=== PATIENT | female | born 1950 | race Caucasian/White ===

== ENCOUNTER → 2018-01-08 | Outpatient (CLI) | payer OTHER ==
[~2018-01-08] MED LIST: HYDR12.558 PO; LOR7.5/325 PO
--- NOTE | 2018-01-08 13:52 | RADIOLOGY IMAGING REPORT ---
FACILITY: [facility] [place] PATIENT NAME: Emma Alexis : 1950 MR: [id number] V: [id number] EXAM DATE: ORDERING PHYSICIAN: JOSE BENTON TECHNOLOGIST: Location: [facility] Patient: Emma Alexis : 1950 Visit/Account:[id number] Date of Sevice: 01/08/2018 Exam type: CHEST PA AND LAT History: Cough, shortness of breath x2 months Comparison: December 17, 2014. Findings: The lungs are free of acute effusions of the tracer edema. Hyperinflation lung basilio again noted. There is linear scarring in the upper lobes. No evidence of a pneumothorax or pneumomediastinum. Th e cardiac silhouette is normal in size. IMPRESSION: 1. Hyperinflation lung basilio and upper lobe scarring although no acute heart pulmonary process is s een Report Dictated By: Sonia Hill MD at 01/08/2018 1:47 PM Report E-Signed By: Sonia Hill MD at 01/08/2018 1:49 PM WSN:[email or web address]
== END ==
LOC: RAD 11:40
PROVIDERS: ATTEND Nurse Practitioner Family
DX: R91.8 Other nonspecific abnormal finding of lung field (principal)
CPT/HCPCS: 71046

== ENCOUNTER → 2018-09-27 | Outpatient (CLI) | payer OTHER ==
--- NOTE | 2018-09-28 11:26 | RADIOLOGY IMAGING REPORT ---
[place] [facility] [place] NAME: DANA PIERCE : [id number] MR: [id number] V: [id number] EXAM DATE: ORDERING PHYSICIAN: JOSE BENTON TECHNOLOGIST: Edilia Galeano PROCEDURE:BILATERAL DIAGNOSTIC DIGITAL MAMMOGRAM WITH CAD ASSISTED INTERPRETATION & 3D TOMOSYNTHESIS COMPARISON:None. Baseline mammogram INDICATIONS:PALPABLE RIGHT BREAST LUMP FINDINGS: The breasts are heterogeneously dense which can obscure small masses. In the retroareolar Right breast there is a large irregular spiculated mass with pleomorphic calcifications extremely concerning for malignancy. It corresponds to the irregular hypoechoic shadowing mass seen on today's Right breast Ultrasound. In the inferior medial portion of the Left breast there are 2 irregular spiculated nodules which correspond to the 2 spiculated masses seen on today's Left breast Ultrasound. These are also concerning for malignancy. DIAGNOSTIC CATEGORY 5--HIGHLY SUGGESTIVE OF MALIGNANCY. RECOMMENDATIONS: ULTRASOUND-GUIDED CORE BIOPSY: BILATERAL BREASTS. IMPRESSION: BIRADS 5: Highly suggestive of malignancy. Ultrasound guided core biopsy of the large Right retroareolar mass & the abnormal appearing Right axillary lymph node as seen on today's Right breast Ultrasound. Ultrasound guided core biopsy of the 2 spiculated masses in the 7 o'clock position of the Left breast also recommended. Dictated by: Sonia Hill M.D. on 09/27/2018 at 16:05 Transcribed by: CHRISSIE on 09/28/2018 at 10:25 Approved by: Sonia Hill M.D. on 09/28/2018 at 11:24 [facility]
--- NOTE | 2018-09-28 11:26 | RADIOLOGY IMAGING REPORT ---
FACILITY: PATIENT NAME: DANA PIERCE : [id number] MR: [id number] V: [id number] EXAM DATE: ORDERING PHYSICIAN: JOSE BENTON TECHNOLOGIST: Sia Kirby RDMS(ABD,OBGYN,BR),RVT PROCEDURE:US BILATERAL BREAST COMPARISON:Today's diagnostic mammogram INDICATIONS:BREAST LUMP/ABNORMAL MAMMOGRAM FINDINGS: In the 9 o'clock position of the Right breast adjacent to the nipple there is a large noncircumscribed spiculated heterogeneous mass measuring 4.2 x 3.9 x 2.8cm with intense acoustic shadowing. This mass is extremely concerning for malignancy. In the Right axilla there is an abnormal appearing lymph node with a heterogeneous hilum & abnormal round morphology. This lymph node measures 1.2 x 1 x 1cm & is concerning for a malignant lymph node. There is an additional fatty replaced lymph node in the Right axilla measuring 1.4 x 1.2 x 0.8cm. In the Left breast in the 7 o'clock position 4cm from the nipple there is a noncircumscribed irregular microlobular shadowing hypoechoic mass measuring 1 x 0.7 x 0.7cm in the posterior third. This is concerning for malignancy. Also in the 7 o'clock position Left breast 3cm from the nipple there is a noncircumscribed irregular slightly spiculated hypoechoic mass measuring 8 x 10 x 7mm concerning for malignancy. There are several fatty replaced lymph nodes seen in the Left axilla. DIAGNOSTIC CATEGORY 5--HIGHLY SUGGESTIVE OF MALIGNANCY. RECOMMENDATIONS: ULTRASOUND-GUIDED CORE BIOPSY: BILATERAL BREASTS. IMPRESSION: BIRADS 5: Highly suggestive of malignancy. Ultrasound guided core biopsy recommended of the large heterogeneous shadowing mass in the 9 o'clock position of the Right breast adjacent to the nipple in addition to the abnormal appearing Right axillary lymph node. Ultrasound guided core biopsy also recommended of the 2 masses in the 7 o'clock position of the Left breast. Dictated by: Sonia Hill M.D. on 09/27/2018 at 16:02 Transcribed by: CHRISSIE on 09/28/2018 at 11:10 Approved by: Sonia Hill M.D. on 09/28/2018 at 11:25 [facility]
== END ==
LOC: MAMO 00:42
PROVIDERS: ATTEND Nurse Practitioner Family
DX: N63.11 Unspecified lump in the right breast, upper outer quadrant (principal); N63.22 Unspecified lump in the left breast, upper inner quadrant
CPT/HCPCS: 77062; 77066

== ENCOUNTER → 2018-10-10 | Outpatient (CLI) | payer OTHER ==
[~2018-10-10] MED LIST changes: +LIDOCAINE MPF 1% 5 ML VIAL ONE
[2018-10-10 09:14] LABS: INR 0.9
--- NOTE | 2018-10-10 16:00 | RADIOLOGY IMAGING REPORT ---
FACILITY: [facility] - [place] PATIENT NAME: DANA PIERCE : [id number] MR: [id number] V: [id number] EXAM DATE: ORDERING PHYSICIAN: JOSE BENTON TECHNOLOGIST: Skye Palma RT(R)(CT) PROCEDURE: BIOPSY LEFT BREAST/2 MASSES IN THE 7 O'CLOCK POSITION/POST BIOPSY RIGHT & LEFT MLO & CC VIEWS. COMPARISON: None. INDICATIONS: Indeterminate mass of the Left breast 7 o'clock position, 2 masses. FINDINGS: Prior to the exam risks & benefits of a Left breast biopsy x 2 were discussed with the patient & an informed consent was obtained. The patient was placed supine on the gurney & the Left breast was prepped & draped in normal sterile fashion. The 7 o'clock lesion that is closest to the nipple was evaluated first. 1% Lidocaine was locally injected for analgesia. After a small skin anusha, a 12 Gauge spring loaded biopsy needle was used to obtain 2 samples of the mass. A biopsy clip was then placed. Next, 1% Lidocaine was locally injected for analgesia for the 7 o'clock position mass that is further from the nipple. After a small skin anusha, a 12 Gauge spring loaded biopsy needle was used to obtain 1 sample. A clip was then placed under Ultrasound guidance at the 2nd mass. Right & Left CC & MLO mammograms were then obtained which demonstrate the clips are in good position. IMPRESSION: 1. Ultrasound guided biopsy of 2 masses in Left breast, a mass labeled as 7 o'clock closer to the nipple & a mass labeled as 7 o'clock further from the nipple. Both masses had clips placed. Dictated by: Kamar Reyna M.D. on 10/10/2018 at 14:02 Transcribed by: CHRISSIE on 10/10/2018 at 15:42 Approved by: Kamar Reyna M.D. on 10/10/2018 at 15:59 [facility]
--- NOTE | 2018-10-10 16:00 | RADIOLOGY IMAGING REPORT ---
[place] [facility] [place] DANA PIERCE : [id number] MR: [id number] V: [id number] EXAM DATE: ORDERING PHYSICIAN: JOSE BENTON TECHNOLOGIST: Skye Palma RT(R)(CT) PROCEDURE: BIOPSY LEFT BREAST/2 MASSES IN THE 7 O'CLOCK POSITION/POST BIOPSY RIGHT & LEFT MLO & CC VIEWS. COMPARISON: None. INDICATIONS: Indeterminate mass of the Left breast 7 o'clock position, 2 masses. FINDINGS: Prior to the exam risks & benefits of a Left breast biopsy x 2 were discussed with the patient & an informed consent was obtained. The patient was placed supine on the gurney & the Left breast was prepped & draped in normal sterile fashion. The 7 o'clock lesion that is closest to the nipple was evaluated first. 1% Lidocaine was locally injected for analgesia. After a small skin anusha, a 12 Gauge spring loaded biopsy needle was used to obtain 2 samples of the mass. A biopsy clip was then placed. Next, 1% Lidocaine was locally injected for analgesia for the 7 o'clock position mass that is further from the nipple. After a small skin anusha, a 12 Gauge spring loaded biopsy needle was used to obtain 1 sample. A clip was then placed under Ultrasound guidance at the 2nd mass. Right & Left CC & MLO mammograms were then obtained which demonstrate the clips are in good position. IMPRESSION: 1. Ultrasound guided biopsy of 2 masses in Left breast, a mass labeled as 7 o'clock closer to the nipple & a mass labeled as 7 o'clock further from the nipple. Both masses had clips placed. Dictated by: Kamar Reyna M.D. on 10/10/2018 at 14:02 Transcribed by: CHRISSIE on 10/10/2018 at 15:42 Approved by: Kamar Reyna M.D. on 10/10/2018 at 15:59 [facility]
--- NOTE | 2018-10-10 16:00 | RADIOLOGY IMAGING REPORT ---
FACILITY: [facility] PATIENT NAME: DANA PIERCE : [id number] MR: [id number] V: [id number] EXAM DATE: [id number] ORDERING PHYSICIAN: JOSE BENTON TECHNOLOGIST: Skye Palma RT(R)(CT) PROCEDURE: BIOPSY RIGHT BREAST/9 o'clock position/axillary lymph node COMPARISON: Prior mammogram & prior Ultrasound 09/27/2018 INDICATIONS: Indeterminate mass & indeterminate lymph node Right breast FINDINGS: Prior to the exam risks & benefits of 2 biopsies of the Right breast were discussed with the patient & informed consent was obtained. The patient was placed supine on the gurney & the Right breast was prepped & draped in normal sterile fashion. 1% Lidocaine was locally injected. After a small skin anusha, a 12 Gauge spring loaded biopsy needle was used to obtain 3 samples of the large mass at the 9 o'clock position of the Right breast. A biopsy clip was then placed. Next 1% Lidocaine was locally injected at the Right axilla & using Ultrasound guidance a 17 Gauge spring loaded needle was used to obtain 3 samples of the Right lymph node. A clip was then placed at the biopsy site of the lymph node. IMPRESSION: Ultrasound guided biopsy of a large mass 9 o'clock position Right breast & Ultrasound guided biopsy of an abnormal Right axillary lymph node. At both biopsy sites, breast clips were placed. There were no immediate post procedure complications. Dictated by: Kamar Reyna M.D. on 10/10/2018 at 13:57 Transcribed by: CHRISSIE on 10/10/2018 at 15:21 Approved by: Kamar Reyna M.D. on 10/10/2018 at 15:59 [facility]
== END ==
LOC: US 00:59
PROVIDERS: ATTEND Nurse Practitioner Family
DX: C50.911 Malignant neoplasm of unspecified site of right female breast (principal); C50.912 Malignant neoplasm of unspecified site of left female breast; C77.3 Secondary and unspecified malignant neoplasm of axilla and upper limb lymph nodes
CPT/HCPCS: 19083; 36415; 77062; 77066; 85610; 88305; 88344; J2001

== ENCOUNTER 2018-10-18 12:33 | Outpatient (RCR) | payer OTHER ==
[~2018-10-18 12:33] MED LIST changes: -LIDOCAINE MPF 1% 5 ML VIAL ONE
== END 2018-11-05 14:43 | disposition home or self-care (01) ==
LOC: ONC 12:33
PROVIDERS: ATTEND Internal Medicine Hematology
DX: Z02.9 Encounter for administrative examinations, unspecified (principal)

== ENCOUNTER → 2018-10-30 | Outpatient (CLI) | payer OTHER | LOC: US 00:15 | PROVIDERS: ATTEND Internal Medicine Hematology & Oncology | DX: Z51.81 Encounter for therapeutic drug level monitoring (principal); C50.312 Malignant neoplasm of lower-inner quadrant of left female breast; C50.411 Malignant neoplasm of upper-outer quadrant of right female breast; Z17.0 Estrogen receptor positive status [ER+]; I42.7 Cardiomyopathy due to drug and external agent; Z79.899 Other long term (current) drug therapy | CPT/HCPCS: 93306 ==

== ENCOUNTER 2018-11-24 16:03 | Emergency (ER) | payer OTHER ==
[2018-11-24 16:06] VITALS: BP 136/88
[2018-11-24] MEDS ORDERED: MAGIC MOUTHWASH (16:10)
[2018-11-24] MEDS ORDERED: POTA-28 PO (16:10)
[2018-11-24] MEDS ORDERED: ROSU5TAB8 PO (16:10)
--- NOTE | 2018-11-24 16:16 | ER Report ---
History and Physical Time Seen By MD: 16:14 Hx. of Stated Complaint: BEING TREATED FOR BREAST CANCER IN [place]. SORE THROAT SINCE MONDAY. HPI/ROS Has been receiving chemotherapy for the past 4 weeks. Has had problems with mucosal irritation in mouth/lips. Now with sore throat. No fever/chills. Able to take PO, but less due to pain. Has been using magic mouthwash for pain. Last chemo 10 days ago. Remainder of the 14 system rev: Yes Allergies: Coded Allergies: No Known Drug Allergies (Unverified , 11/24/18) Home Meds Active Scripts Fluconazole (FLUCONAZOLE) 200 Mg Tablet, 200 MG PO QDAY for 3 Days, #3 Prov:TEJINDER GARCIA MD 11/24/18 Reported Medications Potassium Chloride (POTASSIUM CHLORIDE) 10 Meq Tablet.er, 10 MEQ PO QODAY 11/24/18 Rosuvastatin Calcium (CRESTOR) 5 Mg Tablet, 5 MG PO QDAY 11/24/18 [Magic Mouthwash] No Conflict Check 11/24/18 Hydrochlorothiazide (Hydrochlorothiazide) 12.5 Mg Capsule, 12.5 MG PO QDAY 12/23/11 Discontinued Reported Medications Acetaminophen/Hydrocodone (Lortab 7.5/325 Mg) 7.5 Mg/325 Mg Tab, 1 TAB PO Q6H, #20 12/23/11 Reviewed Nurses Notes: Yes Old Medical Records Reviewed: Yes Hx Smoking: Yes Hx Substance Use Disorder: No Hx Alcohol Use: No Constitutional Vital Sign - Last 24 Hours 11/24/18 16:06 Temp 98.3 Pulse 100 Resp 20 B/P (MAP) 136/88 Pulse Ox 91 O2 Delivery Room Air Physical Exam General Appearance: The patient is alert, has no immediate need for airway protection and no current signs of toxicity. Eyes: Pupils equal and round no injection. Mouth: ulceration of bottom lip, o/p erythematous without exudate. Respiratory: Chest is non tender, lungs are clear to auscultation. Cardiac: regular rate and rhythm Skin: No rashes or lesions. DIFFERENTIAL DIAGNOSIS: After history and physical exam differential diagnosis was considered for esophagitis, strep pharyngitis, SJS, herpangina, thrush Medical Decision Making Data Points Result Diagram: 11/24/18 1622 11/24/18 1622 Laboratory Hematology Test 11/24/18 16:20 11/24/18 16:22 Group A Streptococcus (PCR) Negative (NEGATIVE) Red Blood Count 3.92 M/uL (4.17-5.56) Mean Corpuscular Volume 92.1 fL (80.0-96.0) Mean Corpuscular Hemoglobin 31.9 pg (26.0-33.0) Mean Corpuscular Hemoglobin Concent 34.6 g/dL (32.0-36.0) Red Cell Distribution Width 11.9 % (11.5-14.5) Mean Platelet Volume 8.1 fL (7.2-11.1) Neutrophils (%) (Auto) 79.8 % (39.4-72.5) Lymphocytes (%) (Auto) 12.9 % (17.6-49.6) Monocytes (%) (Auto) 6.6 % (4.1-12.4) Eosinophils (%) (Auto) 0.2 % (0.4-6.7) Basophils (%) (Auto) 0.5 % (0.3-1.4) Nucleated RBC Relative Count (auto) 0.1 /100WBC Neutrophils # (Auto) 1.9 K/uL (2.0-7.4) Lymphocytes # (Auto) 0.3 K/uL (1.3-3.6) Monocytes # (Auto) 0.2 K/uL (0.3-1.0) Eosinophils # (Auto) 0.0 K/uL (0.0-0.5) Basophils # (Auto) 0.0 K/uL (0.0-0.1) Nucleated RBC Absolute Count (auto) 0.00 K/uL Peripheral Blood Smear Yes Y/N Sodium Level 130 mmol/L (137-145) Potassium Level 3.0 mmol/L (3.5-5.0) Chloride Level 92 mmol/L (98-107) Carbon Dioxide Level 24 mmol/L (22-31) Blood Urea Nitrogen 20 mg/dl (7-18) Creatinine 1.10 mg/dl (0.52-1.04) Glomerular Filtration Rate Calc 49.4 Random Glucose 126 mg/dl (75-110) Calcium Level 9.6 mg/dl (8.4-10.2) Total Bilirubin 0.4 mg/dl (0.2-1.3) Aspartate Amino Transf (AST/SGOT) 17 U/L (0-35) Alanine Aminotransferase (ALT/SGPT) 37 U/L (0-56) Alkaline Phosphatase 105 U/L (0-126) Total Protein 7.0 g/dl (6.3-8.2) Albumin 4.1 g/dl (3.5-5.0) Chemistry Test 11/24/18 16:20 11/24/18 16:22 Group A Streptococcus (PCR) Negative (NEGATIVE) White Blood Count 2.3 k/uL (4.5-11.0) Red Blood Count 3.92 M/uL (4.17-5.56) Hemoglobin 12.5 g/dL (12.0-16.0) Hematocrit 36.1 % (34.0-47.0) Mean Corpuscular Volume 92.1 fL (80.0-96.0) Mean Corpuscular Hemoglobin 31.9 pg (26.0-33.0) Mean Corpuscular Hemoglobin Concent 34.6 g/dL (32.0-36.0) Red Cell Distribution Width 11.9 % (11.5-14.5) Platelet Count 91 K/uL (150-450) Mean Platelet Volume 8.1 fL (7.2-11.1) Neutrophils (%) (Auto) 79.8 % (39.4-72.5) Lymphocytes (%) (Auto) 12.9 % (17.6-49.6) Monocytes (%) (Auto) 6.6 % (4.1-12.4) Eosinophils (%) (Auto) 0.2 % (0.4-6.7) Basophils (%) (Auto) 0.5 % (0.3-1.4) Nucleated RBC Relative Count (auto) 0.1 /100WBC Neutrophils # (Auto) 1.9 K/uL (2.0-7.4) Lymphocytes # (Auto) 0.3 K/uL (1.3-3.6) Monocytes # (Auto) 0.2 K/uL (0.3-1.0) Eosinophils # (Auto) 0.0 K/uL (0.0-0.5) Basophils # (Auto) 0.0 K/uL (0.0-0.1) Nucleated RBC Absolute Count (auto) 0.00 K/uL Peripheral Blood Smear Yes Y/N Glomerular Filtration Rate Calc 49.4 Calcium Level 9.6 mg/dl (8.4-10.2) Total Bilirubin 0.4 mg/dl (0.2-1.3) Aspartate Amino Transf (AST/SGOT) 17 U/L (0-35) Alanine Aminotransferase (ALT/SGPT) 37 U/L (0-56) Alkaline Phosphatase 105 U/L (0-126) Total Protein 7.0 g/dl (6.3-8.2) Albumin 4.1 g/dl (3.5-5.0) ED Course/Re-evaluation ED Course No fever, not neutropenic. No evidence of SJS. STrep negative. Possible esophagitis secondary to chemo. Able to take PO. Hypokalemic, but already on potassium Given diflucan in the ED and an additional 3 days. Will follow up with oncologist. Decision to Disposition Date: Nov 24, 2018 Decision to Disposition Time: 17:04 Depart Departure Latest Vital Signs Vital Signs Date Time Temp Pulse Resp B/P (MAP) Pulse Ox O2 Delivery O2 Flow Rate FiO2 11/24/18 16:06 98.3 100 20 136/88 91 Room Air Impression: Primary Impression: Esophagitis Condition: Improved Disposition: HOME OR SELF-CARE Referrals: JOSE BENTON RESEARCH PROFESSOR (PCP) New Scripts Fluconazole (FLUCONAZOLE) 200 Mg Tablet 200 MG PO QDAY for 3 Days, #3 Prov: TEJINDER GARCIA MD 11/24/18 Patient Instructions: Esophagitis (ED) TEJINDER GARCIA MD Nov 24, 2018 16:16
[2018-11-24] MEDS ORDERED: FLUCONAZOLE 100 MG TAB PO ONE (16:30)
[2018-11-24 16:32] LABS: PLATELET COUNT, AUTOMATED 91 K/uL (150-450)
[2018-11-24] MEDS ORDERED: FLUC200T56 PO (17:11)
== END 2018-11-24 17:31 | disposition home or self-care (01) ==
LOC: ER 16:30
DX: K20.9 Esophagitis, unspecified (principal)
CPT/HCPCS: 36415; 82040; 82247; 82310; 82374; 82435; 82565; 82947; 84075; 84132; 84155; 84295; 84450; 84460; 84520; 85025; 87653

== ENCOUNTER → 2018-12-03 | Outpatient (CLI) | payer OTHER ==
[~2018-12-03] MED LIST changes: +FLUC200T56 PO; +MAGIC MOUTHWASH; +POTA-28 PO; +ROSU5TAB8 PO
== END ==
LOC: LAB 06:56
PROVIDERS: ATTEND Nurse Practitioner Family
DX: E87.6 Hypokalemia (principal); E87.1 Hypo-osmolality and hyponatremia
CPT/HCPCS: 36415; 82310; 82374; 82435; 82565; 82947; 84132; 84295; 84520

== ENCOUNTER → 2019-01-10 | Emergency (ER) | payer OTHER ==
[~2019-01-10] MED LIST changes: +HEPARIN FLSH (PORT) 500 UN/5ML IVP ONE; +NS(*) 0.9% 1000 ML BAG 1,000 ML IV ONE
--- NOTE | 2019-01-10 10:56 | ER Report ---
History and Physical Time Seen By MD: 10:52 Hx. of Stated Complaint: double dose of chemo monday. c/o nausea, dizziness. states "my blood was borderline monday." HPI/ROS CHIEF COMPLAINT: Fatigue, chemotherapy, breast cancer HISTORY OF PRESENT ILLNESS: This is a 68-year-old female who presents to emergency department for fatigue. 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 She has had increased fatigue this week, she spoke to the [facility], they did tell her that her "blood count was really low", a solution as a follow-up appointment this coming Monday and decided she was unable to wait to Monday she is so fatigued, and then today began to have some exertional dyspnea when she was up walking around trying to m radha tea. She denies fevers or chills. No nausea or vomiting at this time no blood in the stool or urine that she's noted. REVIEW OF SYSTEMS: Constitutional: No fever, no chills. Eyes: No discharge. ENT: No sore throat. Cardiovascular: As above. Respiratory: As above. Gastrointestinal: No abdominal pain, no vomiting. Genitourinary: No hematuria. Musculoskeletal: No back pain. Skin: No rashes. Neurological: No headache. Allergies: Coded Allergies: No Known Drug Allergies (Unverified , 11/24/18) Home Meds Active Scripts Fluconazole (FLUCONAZOLE) 200 Mg Tablet, 200 MG PO QDAY for 3 Days, #3 Prov:TEJINDER GARCIA MD 11/24/18 Reported Medications Potassium Chloride (POTASSIUM CHLORIDE) 10 Meq Tablet.er, 10 MEQ PO QODAY 11/24/18 Rosuvastatin Calcium (CRESTOR) 5 Mg Tablet, 5 MG PO QDAY 11/24/18 [Magic Mouthwash] No Conflict Check 11/24/18 Hydrochlorothiazide (Hydrochlorothiazide) 12.5 Mg Capsule, 12.5 MG PO QDAY 12/23/11 Past Medical/Surgical History The patient has a past medical surgical history of hypertension, hypercholesterolemia, bilateral breast cancer, chemotherapy. Reviewed Nurses Notes: Yes Hx Smoking: Yes Hx Substance Use Disorder: No Hx Alcohol Use: No Constitutional Vital Sign - Last 24 Hours 01/10/19 01/10/19 01/10/19 01/10/19 10:40 10:45 10:45 10:51 Temp 98.5 Pulse 94 85 Resp 22 B/P (MAP) 114/58 (76) 114/83 114/60 (78) Pulse Ox 97 91 O2 Delivery Room Air 01/10/19 01/10/19 01/10/19 01/10/19 11:00 11:15 11:21 11:30 Pulse 97 B/P (MAP) 99/50 (66) 108/55 (72) 107/52 (70) Pulse Ox 93 01/10/19 01/10/19 01/10/19 01/10/19 11:45 11:51 11:56 12:00 Pulse 93 ??? B/P (MAP) 110/54 (72) 106/39 (61) Pulse Ox 92 01/10/19 01/10/19 01/10/19 01/10/19 12:15 12:26 12:30 12:45 Pulse 102 B/P (MAP) 126/62 (83) 103/67 (79) 87/55 (66) 01/10/19 01/10/19 01/10/19 01/10/19 12:56 13:00 13:15 13:20 Pulse 101 97 B/P (MAP) 97/52 (67) 93/42 (59) 01/10/19 01/10/19 01/10/19 01/10/19 13:30 13:45 13:50 14:57 Pulse 101 B/P (MAP) 93/68 (76) 110/67 (81) 103/54 (70) 01/10/19 15:47 Pulse 100 Pulse Ox 93 Physical Exam General Appearance: The patient is alert, has no immediate need for airway protection and no signs of toxicity. Eyes: Pupils equal and round no pallor or injection. ENT, Mouth: Mucous membranes are moist, pale. Respiratory: There are no retractions, lungs are clear to auscultation. Cardiovascular: Regular rate and rhythm. No murmurs, clicks or rubs. Gastrointestinal: Abdomen is soft and non tender, no masses, bowel sounds normal. Neurological: Alert and oriented 4. Moving all extremities. Following all commands. No focal neuro deficits. Skin: Warm and dry, no rashes. Musculoskeletal: Neck is supple non tender. Extremities are nontender, nonswollen and have full range of motion. DIFFERENTIAL DIAGNOSIS: After history and physical exam differential diagnosis was considered for neutropenia, medication side effect, infection, metastasis. Medical Decision Making Data Points Result Diagram: 01/10/19 1115 01/10/19 1115 Laboratory Hematology Test 01/10/19 11:15 White Blood Count 64.2 k/uL (4.5-11.0) *H Red Blood Count 2.60 M/uL (4.17-5.56) L Hemoglobin 8.4 g/dL (12.0-16.0) *L Hematocrit 24.8 % (34.0-47.0) *L Mean Corpuscular Volume 95.3 fL (80.0-96.0) Mean Corpuscular Hemoglobin 32.2 pg (26.0-33.0) Mean Corpuscular Hemoglobin Concent 33.8 g/dL (32.0-36.0) Red Cell Distribution Width 14.2 % (11.5-14.5) Platelet Count 279 K/uL (150-450) Mean Platelet Volume 7.3 fL (7.2-11.1) Neutrophils (%) (Auto) % (39.4-72.5) Lymphocytes (%) (Auto) % (17.6-49.6) Monocytes (%) (Auto) % (4.1-12.4) Eosinophils (%) (Auto) % (0.4-6.7) Basophils (%) (Auto) % (0.3-1.4) Nucleated RBC Relative Count (auto) /100WBC Neutrophils # (Auto) K/uL (2.0-7.4) Lymphocytes # (Auto) K/uL (1.3-3.6) Monocytes # (Auto) K/uL (0.3-1.0) Eosinophils # (Auto) K/uL (0.0-0.5) Basophils # (Auto) K/uL (0.0-0.1) Nucleated RBC Absolute Count (auto) K/uL Neutrophils % (Manual) 94 % (39.4-72.5) H Lymphocytes % (Manual) 1 % (17.6-49.6) L Monocytes % (Manual) 2 % (4.1-12.4) L Eosinophils % (Manual) 0 % (0.4-6.7) L Basophils % (Manual) 0 % (0.3-1.4) L Myelocytes % 3 % Chemistry Test 01/10/19 11:15 01/10/19 14:00 Sodium Level 124 mmol/L (137-145) Potassium Level 3.3 mmol/L (3.5-5.0) Chloride Level 92 mmol/L (98-107) Carbon Dioxide Level 21 mmol/L (22-31) Blood Urea Nitrogen 14 mg/dl (7-18) Creatinine 0.80 mg/dl (0.52-1.04) Glomerular Filtration Rate Calc > 60.0 Random Glucose 102 mg/dl (75-110) Lactate 1.3 mmol/L (0.7-2.1) Calcium Level 8.9 mg/dl (8.4-10.2) Total Bilirubin 0.5 mg/dl (0.2-1.3) Aspartate Amino Transf (AST/SGOT) 24 U/L (0-35) Alanine Aminotransferase (ALT/SGPT) 30 U/L (0-56) Alkaline Phosphatase 157 U/L (0-126) Total Protein 6.3 g/dl (6.3-8.2) Albumin 3.8 g/dl (3.5-5.0) Troponin I 0.049 ng/ml Urinalysis Test 01/10/19 12:10 Urine Color Yellow Urine Clarity Clear Urine pH 7.0 pH (4.8-9.5) Urine Specific [place] 1.009 Urine Protein Negative mg/dL (NEGATIVE) Urine Glucose (UA) Negative mg/dL (NEGATIVE) Urine Ketones Negative mg/dL (NEGATIVE) Urine Blood Negative (NEGATIVE) Urine Nitrite Negative (NEGATIVE) Urine Bilirubin Negative (NEGATIVE) Urine Urobilinogen Negative mg/dL (0.2-1.9) Urine Leukocyte Esterase Small (NEGATIVE) Urine RBC 2 /HPF (0-2/HPF) Urine WBC 25 /HPF (0-5/HPF) Urine Squamous Epithelial Cells Many /LPF (</=FEW) Urine Transitional Epithelial Cells Many /LPF (NONE-FEW) Urine Bacteria Negative /HPF (NONE-FEW) Urine Mucus None /HPF (NONE-FEW) EKG/Imaging EKG Interpretation 12 lead EKG: Time of EKG 1126. Rhythm: Normal sinus rhythm, ventricular rate 94 bpm. [place]: normal QRS: low voltage QRS. ST segments: No ST depression or elevation identified. Imaging FACILITY: [facility] - [place] PATIENT NAME: Emma Alexis : 1950 MR: [id number] V: [id number] EXAM DATE: ORDERING PHYSICIAN: MER SANCHEZ TECHNOLOGIST: Location: [facility] Patient: Emma Alexis : 1950 Visit/Account:[id number] Date of Sevice: 01/10/2019 Exam type: CHEST SINGLE AP History: Weak and dizzy this morning, shortness of breath, status post chemotherapy Comparison: January 08, 2018. Findings: Again noted is hyperinflation of the lung basilio. There is no evidence of acute-appearing pulmonary consolidation pleural effusions or overt pulmonary edema. Cardiac silhouette is normal in size. There is an implanted right-sided port the distal tip projecting over the superior vena cava. IMPRESSION: 1. No acute cardiopulmonary process is seen Report Dictated By: Sonia Hill MD at 01/10/2019 12:01 PM Report E-Signed By: Sonia Hill MD at 01/10/2019 12:02 PM WSN:[email or web address] ED Course/Re-evaluation Clinical Indication for ER IV: IV Access ED Course The patient was admitted to room. A history and physical were obtained. Differential diagnoses were considered. The patient's port was accessed, a CBC, CMP, troponin, lactate and cultures were obtained. The patient's white blood cell count was 64.2, Neutrophils 94%, troponin 0.054, H&H 8.4 and 24.8, sodium of 124, potassium 3.3. The patient does have a history of low sodium, however in speaking with oncology, she felt that admission for observation would not be unreasonable as noted below. Elevated white blood cell count likely from the Neulasta injection. As the initial troponin was 0.054, I did repeat a troponin 3 hours later, 0.049, the patient had no other episodes of shortness of breath or discomfort, I did discuss the case with Dr. Landers is notable, ultimately the patient was given 1 L of normal saline in the emergency department, the patient would prefer to go home, I was agreeable with this, as well as the hospitalist, patient will return to the ER for any other concerns or worsening symptoms, she does have a follow-up appointment with the cancer clinic this next Monday. No other questions or concerns at this time and discharged home. 01/10/2019 12:46:00 pm I did speak with the [facility] in [place] specifically with Dr. Hunetr, the oncologist at the clinic today, she was somewhat familiar with the patient's history, we did discuss the patient's laboratory findings today specifically the white blood cell count Of 64.2, her H&H as well as the troponin and sodium of 124. She felt that the elevated white blood cell count is likely from the Neulasta injection that she received January 08, she also felt that admission for observation is not unreasonable. I did review this with the patient, I also indicated we would repeat the troponin and speak with the hospitalist. 01/10/2019 2:53:37 pm I did speak with the hospitalist salon stylist, Dr. Landers, we discussed the patient's case, he felt that the patient would be safe to go home after giving her a liter of fluid, the patient would prefer to go home at this time, she is agreeable with a liter of fluid and then discharging home, with the understanding that should she develop any other concerning symptoms over the course of the weekend she will return immediately for reevaluation. Decision to Disposition Date: Jan 10, 2019 Decision to Disposition Time: 15:40 Depart Departure Latest Vital Signs Vital Signs Date Time Temp Pulse Resp B/P (MAP) Pulse Ox O2 Delivery O2 Flow Rate FiO2 01/10/19 15:47 100 93 01/10/19 14:57 103/54 (70) 01/10/19 10:45 98.5 22 Room Air Impression: Primary Impression: Breast cancer Additional Impression: Chest pressure Condition: Improved Disposition: HOME OR SELF-CARE Referrals: JOSE BENTON (PCP) 5 Days Additional Instructions: Please follow up with [facility] within 5 days for reevaluation of the chest pressure and discuss the results of the troponin and follow up with cardiology. Follow up monday as scheduled with the cancer center in [place]. Drink plenty of fluids. Get plenty of rest. Should you develop any other concerning findings, develop fevers, chills return to the ED immediately for reevaluation. Continue your current medications as prescribed. Problem Qualifiers Primary Impression: Breast cancer Breast location: unspecified site of breast Estrogen receptor status: unspecified Patient sex: female Laterality: bilateral Qualified Codes: C50.911 - Malignant neoplasm of unspecified site of right female breast; C50.912 - Malignant neoplasm of unspecified site of left female breast MER SANCHEZ WEATHERIZATION ADMINISTRATOR-BC Jan 10, 2019 10:56
[2019-01-10 11:34] LABS: PLATELET COUNT, AUTOMATED 279 K/uL (150-450)
--- NOTE | 2019-01-10 12:11 | RADIOLOGY IMAGING REPORT ---
FACILITY: [facility] - [place], [place] PATIENT NAME: Emma Alexis : 1950 MR: [id number] V: [id number] EXAM DATE: ORDERING PHYSICIAN: MER SANCHEZ TECHNOLOGIST: Location: [facility] [place] Patient: Emma Alexis : 1950 Visit/Account:[id number] Date of Sevice: 01/10/2019 Exam type: CHEST SINGLE AP History: Weak and dizzy this morning, shortness of breath, status post chemotherapy Comparison: January 08, 2018. Findings: Again noted is hyperinflation of the lung basilio. There is no evidence of acute-appearing pulmonary consolidation pleural effusions or overt pulmonary edema. Cardiac silhouette is normal in size. The re is an implanted right-sided port the distal tip projecting over the superior vena cava. IMPRESSION: 1. No acute cardiopulmonary process is seen Report Dictated By: Sonia Hill MD at 01/10/2019 12:01 PM Report E-Signed By: Sonia Hill MD at 01/10/2019 12:02 PM WSN:[email or web address]
[2019-01-10 14:57] VITALS: BP 103/54
--- NOTE | 2019-01-10 14:58 | EKG ---
FACILITY: [facility] - [place] PATIENT NAME: DANA PIERCE : [id number] MR: [id number] V: [id number] EXAM DATE: ORDERING PHYSICIAN: MER SANCHEZ TECHNOLOGIST: POLI Test Reason : CHEMO Blood Pressure : / mmHG Vent. Rate : 094 BPM Atrial Rate : 094 BPM P-R Int : 152 ms QRS Dur : 082 ms QT Int : 364 ms P-R-T Axes : 076 052 038 degrees QTc Int : 455 ms Normal sinus rhythm Low voltage QRS Borderline ECG No previous ECGs available Confirmed by KERWIN WASHINGTON ([id number]) on 01/10/2019 6:35:06 PM Referred By: JUWAN Confirmed By:KERWIN WASHINGTON
== END ==
LOC: ER 10:55
DX: C50.911 Malignant neoplasm of unspecified site of right female breast (principal); R07.89 Other chest pain; R06.02 Shortness of breath
CPT/HCPCS: 36415; 71045; 81001; 83605; 84484; 85025; 87040; 87088; 93005; 96360; 99283; J1642; J7030; 82040; 82247; 82310; 82374; 82435; 82565; 82947; 84075; 84132; 84155; 84295; 84450; 84460; 84520